=== PATIENT | male | born 1980 | race American Indian/Alaskan Native ===

== ENCOUNTER 2018-09-05 17:58 | Emergency (ER) | payer OTHER ==
--- NOTE | 2018-09-05 18:23 | Emergency Department Report ---
Blank Doc - Documentation Documentation: This is a 38-year-old male that presents with acute on chronic intermittent lo wer back pain x5 years. Stated fell today again in the bathroom. This initial assessment/diagnostic orders/clinical plan/treatment(s) is/are subject to change based on patient's health status, clinical progression and re- assessment by fellow clinical providers in the ED. Further treatment and workup at subsequent clinical providers discretion. Patient/guardians urged not to elope from the ED as their condition may be serious if not clinically assessed and managed. Initial orders include: 1- Patient sent to [facility] for further evaluation and treatment 2-lumbar xray
--- NOTE | 2018-09-05 20:01 | XRay Report ---
PROCEDURE: XR SPINE LUMBOSACRAL 2-3V TECHNIQUE: 3 views lumbar spine HISTORY: low back pain COMPARISONS: FINDINGS: Vertebral bodies are normal height and alignment. Disc spaces are within normal limits. Transverse sp inous processes are intact. IMPRESSION: Negative lumbar spine series. This document is electronically signed by Samir Isidro MD., September 05 2018 07:59:52 PM ET
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
[2018-09-05 23:41] VITALS: BP 142/73
== END 2018-09-05 23:41 | disposition home or self-care (01) ==
LOC: ED 17:58
DX: M54.40 Lumbago with sciatica, unspecified side (principal); F17.200 Nicotine dependence, unspecified, uncomplicated; I10 Essential (primary) hypertension
CPT/HCPCS: 72100